=== PATIENT | male | born 1985 ===

== ENCOUNTER 2024-01-23 20:12 | Emergency (ER) | payer BC ==
[~2024-01-23] VITALS: Ht 180.3 cm; Wt 90.9 kg
[2024-01-23 20:43] VITALS: TEMP 100.5
[2024-01-23] MEDS ORDERED: Ketorolac 15 MG/ML VIAL IV ONE (21:30)
[2024-01-23] MEDS ORDERED: Morphine 4 MG/ML VIAL IV ONE (21:30)
[2024-01-23] MEDS ORDERED: NS 1,000 ML IV ONE (21:30)
[2024-01-23] MEDS ORDERED: Ondansetron 4 MG/2 ML VIAL IV ONE (21:30)
[2024-01-23 21:37] LABS: BASO # 0.1 K/mm3 (0.0-0.2); BASO % 0.4 % (0.0-2.0); EOS # 1.3 K/mm3 (0.0-0.7); EOS % 8.1 % (0.0-4.0); GRAN # 12.8 K/mm3 (1.4-6.5); GRAN % 77.5 % (42.2-75.2); HEMATOCRIT 51.3 % (42.0-52.0); HEMOGLOBIN 17.7 g/dl (13.5-18.0); LYMPH # 0.9 K/mm3 (1.2-3.4); LYMPH % 5.5 % (20.0-51.0); MEAN CELL VOLUME 87 fl (80.0-100.0); MEAN CORPUSCULAR HEMOGLOBIN 30 pg (27-31); MEAN CORPUSCULAR HGB CONC 35 g/dl (33.0-37.0); MEAN PLATELET VOLUME 9.5 fl (7.4-10.4); MONO # 1.4 K/mm3 (0.1-0.6); MONO % 8.2 % (1.7-9.3); PLATELET COUNT 289 K/mm3 (130-400); RED BLOOD COUNT 5.87 M/mm3 (4.20-5.60); REDCELL DISTRIBUTION WIDTH-CV 12.9 % (11.5-14.5)
[2024-01-23] MEDS ORDERED: Albuterol/Ipratropium 3 MG-0.5 MG/3 ML Neb Soln IH SCH (21:45)
[2024-01-23 21:49] LABS: ALBUMIN 3.9 g/dL (3.5-5.0); BILIRUBIN,TOTAL 1.3 mg/dL (0.2-1.2); CALCIUM 9.6 mg/dL (8.4-10.2); CREATININE, serum 1.13 mg/dL (0.72-1.25); POTASSIUM 3.6 mEq/L (3.5-4.5)
[2024-01-23 21:55] LABS: TROPONIN-I 0.016 ng/mL (0.00-0.033)
[2024-01-23 21:56] LABS: PH 6.5 (5.0-8.5); URINE APPEARANCE CLEAR (CLEAR/HAZY); URINE BLOOD TRACE (NEGATIVE); URINE COLOR Dark Yellow (YELLOW); URINE GLUCOSE NEGATIVE (NEGATIVE); URINE KETONE TRACE (NEGATIVE); URINE NITRATE NEGATIVE (NEGATIVE); URINE PROTEIN(semi-quant) 2+ (NEGATIVE)
[2024-01-23] MEDS ORDERED: Iohexol 300 - 100 ML VIAL IV ONE (22:04)
[2024-01-23] MEDS ORDERED: NS 50 ML IV ONE (22:05)
[2024-01-23 22:22] LABS: COLLECTION METHOD CLEAN CATCH
[2024-01-23] MEDS ORDERED: Home HYDROcodone/Acetaminophen 5/325 MG #4 TABS/PACK PO ONE (23:45)
[2024-01-23] MEDS ORDERED: NORCO 325 MG-51 TAB PO (23:47)
[2024-01-23 23:57] VITALS: BP 118/74; PULSE 80
== END 2024-01-23 23:57 | disposition home or self-care (01) ==
LOC: COL.ER 20:12
PROVIDERS: Emergency Medicine
DX: K85.90 Acute pancreatitis without necrosis or infection, unspecified (principal)
CPT/HCPCS: J1885; J2270; J2405; J7030; Q9967